=== PATIENT | male | born 1980 ===

== ENCOUNTER 2020-05-07 17:29 | Observation (INO) ==
[2020-05-07] MEDS ORDERED: MORPHINE 4 MG/1 ML VIAL IV STA (18:38)
[2020-05-07] MEDS ORDERED: KETOROLAC 30 MG/1 ML VIAL IV STA (18:38)
[2020-05-07] MEDS ORDERED: SODIUM CHLORIDE 0.9% 1,000 ML IV STA (18:38)
[2020-05-07] MEDS ORDERED: ONDANSETRON 4 MG/2 ML VIAL IV STA (18:38)
[2020-05-07 19:04] LABS: Basophils # 0.1 10*3/uL (0.0-0.2); Basophils % 0.5 % (0.0-0.8); Eosinophils # 0.2 10*3/uL (0.0-0.87); Eosinophils % 1.2 % (0.00-10.9); Hematocrit 46.2 VOL% (42.0-52.0); Hemoglobin 15.6 GM/DL (14.0-18.0); Immature Granulocytes % 0.9 %; Immature Granulocytes Absolute 0.15 #; Lymphocytes # 1.6 10*3/uL (1.4-4.0); Lymphocytes % 9.3 % (21.2-54.2); Mean Corpuscular HGB Conc 33.8 GM/DL (32-36); Mean Corpuscular Volume 90.4 FL (87-102); Mean Platelet Volume 10.7 FL (9.6-12.0); Monocytes % 4.3 % (1.7-12.7); Neutrophils % 83.8 % (38.7-73.9); Platelet Count 217 T/CUMM (130-400); Red Blood Count 5.11 MC/CUMM (3.8-5.5); Red Cell Distribution Width 12.4 % (9.3-17.3); White Blood Count 17.5 T/CUMM (4-12)
[2020-05-07 19:57] LABS: Albumin 4.1 G/DL (3.4-5.0); Bilirubin,Total 0.7 MG/DL (0.2-1.0); Calcium 8.9 MG/DL (8.5-10.1); Osmolality,Calculated 278.4 MOS/KG (273-304); Total Protein 7.1 G/DL (6.4-8.3)
[2020-05-07] MEDS ORDERED: MORPHINE 10 MG/1 ML VIAL IV PRN (20:24)
[2020-05-07] MEDS ORDERED: PROMETHAZINE 25 MG/1 ML VIAL IM PRN (20:24)
[2020-05-07] MEDS ORDERED: ACETAMINOPHEN 325 MG TABLET PO PRN (20:24)
[2020-05-07] MEDS ORDERED: ONDANSETRON 4 MG/2 ML VIAL IV PRN (20:24)
[2020-05-07] MEDS ORDERED: cefTRIAXone 1,000 MG in SODIUM CHLORIDE 0.9% 100 ML IV STA (20:33)
[2020-05-07 20:34] LABS: Apearance,Urine CLEAR (Clear); Bilirubin,Urine Negative (Negative); Blood, Urine Large mg/dL (Negative); Glucose,Urine (UA) Negative (Negative); Ketones,Urine 20 mg/dL (Negative); Mucus,Urine Occasional /LPF (Occasional); Nitrite,Urine Negative (Negative); Protein,Urine Negative; RBC,Urine 222 /HPF (0-4); Urine Color Yellow (Yellow); Urine Specific Gravity 1.016 (1.001-1.035); Urine Urobilinogen < 2.0 EU/DL (0.2-1.0)
[2020-05-07] MEDS ORDERED: MORPHINE 4 MG/1 ML VIAL IV PRN (22:30)
[2020-05-07] MEDS: SODIUM CHLORIDE 0.45% 1,000 ML IV SCH (23:34)
[2020-05-08] MEDS: KETOROLAC 30 MG/1 ML VIAL IV SCH ×2 (03:36→09:05)
[2020-05-08 06:39] LABS: Basophils # 0.1 10*3/uL (0.0-0.2); Basophils % 0.6 % (0.0-0.8); Eosinophils # 0.2 10*3/uL (0.0-0.87); Eosinophils % 1.3 % (0.00-10.9); Hematocrit 42.4 VOL% (42.0-52.0); Hemoglobin 14.2 GM/DL (14.0-18.0); Immature Granulocytes % 0.4 %; Immature Granulocytes Absolute 0.05 #; Lymphocytes # 1.9 10*3/uL (1.4-4.0); Lymphocytes % 15.3 % (21.2-54.2); Mean Corpuscular HGB Conc 33.5 GM/DL (32-36); Mean Corpuscular Volume 90.8 FL (87-102); Mean Platelet Volume 10.6 FL (9.6-12.0); Monocytes % 5.5 % (1.7-12.7); Neutrophils % 76.9 % (38.7-73.9); Platelet Count 197 T/CUMM (130-400); Red Blood Count 4.67 MC/CUMM (3.8-5.5); Red Cell Distribution Width 12.6 % (9.3-17.3); White Blood Count 12.4 T/CUMM (4-12)
[2020-05-08 07:14] LABS: Calcium 8.2 MG/DL (8.5-10.1); Osmolality,Calculated 278.4 MOS/KG (273-304)
[2020-05-08] MEDS: SODIUM CHLORIDE 0.45% 1,000 ML IV SCH ×2 (07:58→16:14)
[2020-05-08] MEDS ORDERED: diphenhydrAMINE 50 MG/1 ML VIAL IV PRN (10:22)
[2020-05-08] MEDS ORDERED: oxyCODONE/ACETAMINOPHEN 5-325 MG TABLET PO PRN (10:22)
[2020-05-08] MEDS ORDERED: MORPHINE 4 MG/1 ML VIAL IV PRN (10:22)
[2020-05-08] MEDS ORDERED: BACLOFEN 10 MG TABLET PO PRN (10:33)
[2020-05-08] MEDS ORDERED: cefTRIAXone 1,000 MG in SYRINGE 1 EACH IV SCH (21:00)
[2020-05-08] MEDS ORDERED: busPIRone 15 MG TABLET PO SCH (21:00)
[2020-05-09] MEDS: SODIUM CHLORIDE 0.45% 1,000 ML IV SCH (00:30)
[2020-05-09 06:13] LABS: Calcium 8.3 MG/DL (8.5-10.1); Osmolality,Calculated 272.7 MOS/KG (273-304)
[2020-05-09 07:56] VITALS: BP 122/64
[2020-05-09] MEDS ORDERED: PANTOPRAZOLE 40 MG TABLET PO SCH (09:00)
== END 2020-05-09 10:00 | disposition home or self-care (01) ==
LOC: N.ED 17:29 → N.EDINP 17:29 → N.3E 22:09
PROVIDERS: ADMIT Surgery; ATTEND Surgery